=== PATIENT | male | born 1995 | race Caucasian/White ===

== ENCOUNTER 2018-07-15 18:55 | Emergency (ER) | payer SELFPAY ==
[2018-07-15] MEDS ORDERED: Lidocaine 1% with EPINEPHrine 1:100,000 10 ML MDV INJECT ONE (19:25)
[2018-07-15] MEDS ORDERED: Lidocaine 1% with EPINEPHrine 1:100,000 20 ML MDV INJECT ONE (19:28)
--- NOTE | 2018-07-15 20:10 | EDM.PDOC ---
ED HPI GENERAL MEDICAL PROBLEM - General Chief Complaint: Head Injury Stated Complaint: PT FELL AND HURT HEAD Time Seen by Provider: 07/15/18 19:15 Source of Information: Reports: Patient History Limitations: Reports: No Limitations - History of Present Illness INITIAL COMMENTS - FREE TEXT/NARRATIVE: Patient presents reporting a laceration. He states he tripped on some steps and his face hit the cement lacerating of the medial brow on the right. No loss of consciousness, headache visual symptoms. laceration over forehead Pain Score (Numeric/FACES): 2 - Related Data Allergies Allergy/AdvReac Type Severity Reaction Status Date / Time No Known Allergies Allergy Verified 07/15/18 19:19 Home Meds: Home Meds . [No Known Home Meds] 07/15/18 [History] Past Medical History Musculoskeletal History: Reports: Other (See Below) Other Musculoskeletal History: osteomylitis - Past Surgical History Musculoskeletal Surgical History: Reports: None Social & Family History - Family History Family Medical History: Noncontributory - Tobacco Use Smoking Status *Q: Never Smoker Second Hand Smoke Exposure: No - Caffeine Use Caffeine Use: Reports: Energy Drinks - Recreational Drug Use Recreational Drug Use: No ED ROS GENERAL - Review of Systems Review Of Systems: ROS reveals no pertinent complaints other than HPI. ED EXAM, HEAD INJURY - Physical Exam Exam: See Below Exam Limited By: No Limitations General Appearance: Alert, No Apparent Distress Head: Atraumatic, Normocephalic Eyes: Bilateral Eye: EOMI, PERRL, Other (Pupils equal round reactive to light and accommodation, EOMs intact distally tested) Ears: Normal External Exam, Normal TMs (Right) Nose: Normal Inspection Throat/Mouth: Normal Inspection Neck: Non-Tender, Full Range of Motion Respiratory: No Respiratory Distress, Lungs Clear Cardiovascular: Normal Peripheral Pulses, Regular Rate, Rhythm Neurologic: cafe site attendant II-XII nml As Tested, No Motor/Sensory Deficits, Alert, Oriented x 3 Skin: Normal Color, Warm/Dry - [place] Coma Score Best Eye Response (Remedios): (4) Open Spontaneously Best Verbal Response (Remedios): (5) Oriented Best Motor Response ([place]): (6) Obeys Commands ED LACERATION/WOUND & JOE PROC - Laceration/Wound Repair Face Lac/wound length in cm: 2 Appearance: Subcutaneous Distal NVT: Neuro & Vascular Intact Anesthetic Type: Local Local Anesthesia - Lidocaine (Xylocaine): 1% with EPI Local Anesthetic Volume: 4cc Skin Prep: Chlorhexidine (Hibiciens) Saline irrigation (cc's): 50 Exploration/Debridement/Repair: Wound Explored, In a Bloodless Field, Explored to Base Closed with: Sutures, Steri-Strips Suture Size: other (5-0) # of Sutures: 1 Suture Type: Nylon Course - Vital Signs Last Recorded V/S: Last Vital Signs Temp 36.9 C 07/15/18 19:14 Pulse 80 07/15/18 19:14 Resp 18 07/15/18 19:14 BP 122/59 L 07/15/18 19:14 Pulse Ox 98 07/15/18 19:14 - Orders/Labs/Meds Meds: Medications Discontinued Medications Generic Name Dose Route Start Last Admin Trade Name Carroll PRN Reason Stop Dose Admin Lidocaine/Epinephrine 10 ml 07/15/18 19:25 07/15/18 19:35 Xylocaine 1% With Epinephrine 1:100,000 INJECT 07/15/18 19:26 Not Given ONETIME ONE Lidocaine/Epinephrine 20 ml 07/15/18 19:28 07/15/18 19:35 Xylocaine 1% With Epinephrine 1:100,000 INJECT 07/15/18 19:29 20 ml ONETIME ONE Administration Departure - Departure Time of Disposition: 20:09 Disposition: Home, Self-Care 01 Condition: Good Clinical Impression: Laceration - Discharge Information Referrals: PCP,None [Primary Care Provider] - [facility] [Outside] [facility] [Outside] Forms: ED Department Discharge, ED Return to Work/School Form Additional Instructions: 1. Suture removal 10 days 2. Keep clean and dry may wash hair 3. watch for signs of infection: Redness, swelling, drainage seek prompt medical attention
== END 2018-07-15 20:21 | disposition home or self-care (01) ==
LOC: MW.ED 18:55
DX: S01.111A Laceration without foreign body of right eyelid and periocular area, initial encounter (principal); W10.8XXA Fall (on) (from) other stairs and steps, initial encounter
CPT/HCPCS: 99282